=== PATIENT | female | born 1990 | race Caucasian/White ===

== ENCOUNTER 2024-01-28 07:40 | Emergency (ER) | payer OTHER, SELFPAY ==
[2024-01-28 08:18] LABS: #Eosinophils 0.1 thou/uL (0.0-0.7); #Lymphocytes 1.2 thou/uL (1.20-3.40); #Monocytes 0.5 thou/uL (0.11-0.59); #Neutrophils 4.4 thou/uL (1.40-6.50); %Basophils 0.4 % (0.0-1.0); %Eosinophils 2.4 % (0.0-10.0); %Lymphocytes 18.5 % (21.0-51.0); %Monocytes 7.6 % (0.0-10.0); %Neutrophils 71.1 % (42.0-75.0); Hematocrit 41.4 % (36.0-47.0); Hemoglobin 14.1 g/dL (12.0-16.0); Mean Corpuscular Hemoglobin 28.6 pg (27.0-31.0); Mean Corpuscular Volume 84.3 fl (78.0-98.0); Mean Platelet Volume 6.5 fL (7.4-10.4); Platelet Count 292 10x3/uL (130-400); RBC Distribution Width 11.5 % (11.5-14.5); Red Blood Cell (RBC) Count 4.91 mill/uL (4.20-5.40); White Blood Cell (WBC) Count 6.2 10x3/uL (4.8-10.8)
[2024-01-28] MEDS ORDERED: Sodium Chloride 0.9% 1,000 ML ONE (08:22)
[2024-01-28 08:27] LABS: BHCG - Serum POSITIVE (NEGATIVE); Pregs Control Bar Appear? YES (CONTROL BAR)
[2024-01-28 08:32] LABS: Anion Gap 13 mmol/L (10-20); BUN (Urea Nitrogen) 15 mg/dL (7.0-18.7); Calc. Creatinine Clearance 0 mL/min (70-130); Carbon Dioxide 21 mmol/L (22-29); Chloride 102 mmol/L (98-107); Estimated GFR 93; Glucose 301 mg/dL (70-105); Potassium 4.1 mmol/L (3.5-5.1); Sodium 132 mmol/L (136-145)
[2024-01-28 08:37] LABS: INR-International Normal Ratio 1.1; Prothrombin Time 13.8 sec (12.0-14.7)
[2024-01-28 08:57] LABS: Bilirubin Negative (Negative); Blood, Urine Moderate (Negative); Clarity Clear (Clear); Glucose, Urine (Dipstick) >=1000 mg/dL (Negative); Ketone, Urine 15 mg/dL (Negative); Leukocyte Negative (Negative); Nitrite Negative (Negative); Protein, Urine (Dipstick) 30 mg/dL (Neg-Trace); Specific Gravity, Urine 1.025 (1.005-1.030); Urobilinogen 0.2 mg/dL (Less than 2); pH, Urine 5.5 (5.0-9.0)
[2024-01-28 08:58] LABS: Squamous Epithelial 0-3 HPF (0-3)
[2024-01-28] MEDS ORDERED: Amlodipine 5 MG TAB ONE (11:06)
== END 2024-01-28 10:03 | disposition short-term general hospital (02) ==
LOC: NAV ERS 07:40
DX: N93.9 Abnormal uterine and vaginal bleeding, unspecified (principal); I95.1 Orthostatic hypotension; I10 Essential (primary) hypertension; E11.9 Type 2 diabetes mellitus without complications; Z79.899 Other long term (current) drug therapy; Z79.84 Long term (current) use of oral hypoglycemic drugs
CPT/HCPCS: 51701; 80048; 81001; 84702; 84703; 85025; 85610; 96360; J7030

== ENCOUNTER 2024-12-11 10:45 | Emergency (ER) | payer OTHER | END 2024-12-11 11:44 | disposition home or self-care (01) | LOC: NAV ERS 10:45 | DX: J06.9 Acute upper respiratory infection, unspecified (principal) | CPT/HCPCS: 87081; 87426; 87430; 99283 ==